=== PATIENT | male | born 1945 | race Asian ===

== ENCOUNTER → 2020-12-27 10:10 | Outpatient (BNVA) | payer MEDICAID, SELFPAY | PROVIDERS: PCP Family Medicine; Visit Provider Family Medicine | DX: E78.2 Mixed hyperlipidemia (principal); G89.29 Other chronic pain; M54.2 Cervicalgia | CPT/HCPCS: 80053; 80061; 84443; 85025 ==

== ENCOUNTER 2021-10-07 07:52 | Outpatient (CLI) | payer MEDICAID, SELFPAY ==
--- NOTE | 2021-10-07 08:07 | MR_ITS ---
WS: [id number] MRI of the cervical spine, 10/07/2021 Clinical Data: CERVICALGIA Comparison: Lateral cervical spine, 10/07/2021 Findings: The patient has had an anterior cervical disc fusion at C4-C5 with artificial disc material. There ar e no compression fractures. The disc heights are normal. No prevertebral soft tissue swelling is seen . The cervical spinal cord is normal in size with no cysts, masses or atrophy. C2-C3: No canal stenosis, disc bulge or foraminal narrowing is seen. C3-C4: No canal stenosis, disc bulge or foraminal narrowing is seen. C4-C5: There is a disc osteophyte complex protruding into the central spinal canal causing mild canal stenosis. No foraminal stenosis is seen. C5-C6: There is a minimal central disc osteophyte complex causing mild central canal stenosis. C6-C7: There is a minimal disc osteophyte complex causing mild central canal stenosis. C7-T1: No canal stenosis, disc bulge or foraminal narrowing is seen. MR/MR cervical spin wo con* [id number] Impression: 1. Anterior cervical disc fusion at C4-C5 with artificial disc material. 2. 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
--- NOTE | 2021-10-07 08:35 | XR_ITS ---
WS: [id number] Lateral views of cervical spine in the flexion, extension and neutral positions. 10/07/2021 Clinical Data: CERVICALGIA Comparison: None. Findings: There is an anterior cervical disc fusion at C4-C5. There is artificial disc material at C4-C5. There are surgical clips in the soft tissue anterior to C4-C5 and C5-C6. No compression fractures are seen . There is no prevertebral soft tissue swelling. There is minimal calcification of the anterior longi tudinal ligaments at C5-C6 and C6-C7. There is no limitation of motion or subluxation on flexion or e xtension. XR/XR cervical spine fl/ex [id number] Impression: 1. Anterior cervical disc fusion at C4-C5 with artificial disc material. 2. Negative for limitation of motion or subluxation on flexion or extension.
== END 2021-10-07 07:53 | disposition home or self-care (01) ==
PROVIDERS: PCP Family Medicine; Visit Provider Nurse Practitioner
DX: M54.2 Cervicalgia (principal); M43.22 Fusion of spine, cervical region
CPT/HCPCS: 72040; 72141